=== PATIENT | female | born 1960 | race Caucasian/White ===

== ENCOUNTER 2018-04-03 08:53 | Outpatient (RCR) | payer OTHER ==
[~2018-04-03 08:53] MED LIST: GLIMEPIRIDE2 MG PO; GLUCOPHAGE1000 MG PO; PRAVASTATIN
== END 2018-04-26 ==
LOC: OT 08:53
PROVIDERS: ATTEND Specialist
DX: S52.501D Unspecified fracture of the lower end of right radius, subsequent encounter for closed fracture with routine healing (principal); M25.531 Pain in right wrist; M25.631 Stiffness of right wrist, not elsewhere classified; R53.1 Weakness

== ENCOUNTER 2018-05-04 15:12 | Emergency (ER) | payer OTHER ==
[~2018-05-04] VITALS: Ht 165.1 cm; Wt 65.8 kg
[2018-05-04] MEDS ORDERED: NPH, HUMAN INSULIN ISOPHANE 100 UNIT/1 ML 3ML VIAL SQ STA (15:29)
[2018-05-04] MEDS ORDERED: CLONIDINE HCL 0.1 MG TAB PO ONE (15:30)
[2018-05-04] MEDS ORDERED: INSULIN REGULAR, HUMAN 100 UNIT/1 ML 3ML VIAL IV ONE (17:15)
== END 2018-05-04 18:33 | disposition home or self-care (01) ==
LOC: FSED 15:12
DX: R07.89 Other chest pain (principal)
CPT/HCPCS: 70450; 70460; 80053; 81003; 85025; 85610; 93005; 99284

== ENCOUNTER 2018-05-06 12:39 | Observation (INO) | payer OTHER ==
[~2018-05-06] VITALS: Ht 165.1 cm; Wt 65.8 kg
[2018-05-06] MEDS ORDERED: SODIUM CHLORIDE 0.9% 1000ML 1,000 ML IV STA ×2 (12:41→14:19)
[2018-05-06] MEDS ORDERED: ASPIRIN 81 MG CHEW TAB PO ONE (12:45)
[2018-05-06 13:09] LABS: BASOPHILS # (AUTO) 0.1 (0.0-0.1); BASOPHILS % 0.8 % (0.0-1.0); EOSINOPHILS # (AUTO) 0.1 (0.0-0.4); EOSINOPHILS % 0.6 % (0.0-6.0); HEMATOCRIT 39.8 % (34.2-44.1); HEMOGLOBIN 13.9 g/dL (12.0-16.0); LYMPHOCYTES # (AUTO) 1.9 (1.0-3.2); LYMPHOCYTES % 23.8 % (18.0-39.1); MEAN CORPUSCULAR HEMOGLOBIN 30.5 pg (28-32); MEAN CORPUSCULAR HGB CONC 34.9 g/dL (31-35); MEAN CORPUSCULAR VOLUME 87.3 fL (81-99); MONOCYTES # (AUTO) 0.5 (0.2-0.8); MONOCYTES % 5.8 % (4.4-11.3); NEUTROPHILS # (AUTO) 5.3 (2.1-6.9); NEUTROPHILS % 68.5 % (38.7-80.0); PLATELET COUNT 343 x10e3/uL (140-360); RED BLOOD COUNT 4.56 x10e6/uL (3.6-5.1); RED CELL DISTRIBUTION WIDTH 11.9 % (11.7-14.4)
[2018-05-06 13:22] LABS: INR 1.08; PARTIAL THROMBOPLASTIN TIME 25.2 seconds (23.8-35.5); PROTHROMBIN TIME 13.2 seconds (11.9-14.5)
[2018-05-06 13:31] LABS: ALANINE AMINOTRANSFERASE 18 IU/L (0-55); ALBUMIN 3.9 g/dL (3.5-5.0); ALBUMIN/GLOBULIN RATIO 1.3 (0.8-2.0); ALKALINE PHOSPHATASE 84 IU/L (40-150); ANION GAP 18.3 mmol/L (8-16); BLOOD UREA NITROGEN 17 mg/dL (7-26); BUN/CREATININE RATIO 20 (6-25); CALCIUM 9.7 mg/dL (8.4-10.2); CARBON DIOXIDE 21 mmol/L (22-29); CHLORIDE 99 mmol/L (98-107); CREATINE KINASE 22 IU/L (29-168); CREATININE, SERUM 0.83 mg/dL (0.57-1.11); EST GLOMERULAR FILTRATION RATE > 60 ML/MIN (60-); POTASSIUM 4.3 mmol/L (3.5-5.1); SODIUM 134 mmol/L (136-145)
[2018-05-06 13:35] LABS: GLUCOSE 410 mg/dL (74-118)
--- NOTE | 2018-05-06 13:50 | Diagnostic Imaging Report ---
History:Left sided weakness Comparison studies:None Technique: Axial images were obtained from the skull base to the vertex. Coronal and sagittal images reconstructed from the axial data. Intravenous contrast: None Findings: Scalp/skull: No abnormalities. Extra-axial spaces: No masses. No fluid collections. Brain sulci: Mildly prominent. Ventricles: Mild compensatory dilatation. No hydrocephalus. Parenchyma: Few small hypodensities in the supratentorial white matter are small vessel ischemic changes. No masses, hemorrhage, acute or chronic cortical vascular insults. Sellar/suprasellar region: No abnormalities. Craniocervical junction: Patent foramen magnum. No Chiari one malformation. Incidental findings: Atherosclerotic calcifications in the carotid siphons . Impression: No acute abnormalities. Chronic findings: 1. Mild generalized volume loss. 2. Mild supratentorial white matter small vessel ischemic changes. Signed by: DR Zohaib Fernandes M.D. on 05/06/2018 1:47 PM
[2018-05-06] MEDS ORDERED: ASPIRIN 325 MG TAB PO ONE (14:00)
[2018-05-06 14:09] LABS: CLARITY,URINE HAZY (CLEAR); COLOR,URINE YELLOW (YELLOW); KETONES,URINE 2+ (NEGATIVE); LEUKOCYTE ESTERASE ,URINE NEGATIVE (NEGATIVE); NITRITE,URINE NEGATIVE (NEGATIVE); PROTEIN,URINE DIPSTICK NEGATIVE (NEGATIVE)
[2018-05-06 14:10] LABS: BILIRUBIN,URINE NEGATIVE (NEGATIVE); URINE UROBILINOGEN 0.2 mg/dL (0.2 - 1)
[2018-05-06 14:11] LABS: BACTERIA,URINE FEW /HPF; EPITHELIAL CELLS,URINE FEW /LPF; RBC,URINE 0-5 /HPF (0-5); WBC,URINE (MAN) 0-5 /HPF (0-5)
[2018-05-06] MEDS ORDERED: INSULIN LISPRO 100 UNIT/1 ML 3ML VIAL SQ STA (14:19)
[2018-05-06] MEDS ORDERED: ONDANSETRON HCL INJ 2 MG/ML VIAL IV PRN (14:45)
[2018-05-06] MEDS ORDERED: DEXTROSE 50% SYRINGE 50 ML IV PRN (16:00)
--- OUTSIDE RECORDS SUMMARY | 2018-05-06 16:03 | XMS REPORT | Continuity of Care Document ---
Author Author [facility] Organization [facility] Address [address] [place] [address] Phone Unavailable Care Team Providers Care Etl Manager Name Role Phone GERARDO ROSE MD PCP Insurance Providers Guarantor Yamileth Greer Address [address] [place] [address] Payer [facility] Policy Number [id number] Subscriber's Name Yamileth Greer Relationship 18 Self / Same As Patient Group Number [id number] Group Name [facility] Effective Date 17 Advance Directives Directive Response Recorded Date/Time Does the patient have an advance directive? No 04/03/18 8:52am If yes, is advance directive on file with [facility]? No 06/05/13 4:12pm If not on file with [facility] will patient provide a copy? No 06/05/13 4:12pm Do you have a Directive to Physician? No 05/04/18 4:15pm Do you have a Medical Power of Medical Director Of Hospice? No 05/04/18 4:15pm Do you have an out of hospital Do Not Resuscitate Order? No 05/04/18 4:15pm Do you have any special needs we should be aware of? No 05/04/18 4:15pm Do you have a support person here with you today? No 05/04/18 4:15pm Did patient receive Notice of Privacy Practices? Yes 05/04/18 4:15pm Did patient receive patient rights and responsibilities? Yes 05/04/18 4:15pm Problems No problem information available. Medications Current Home Medications Medication Dose Units Route Directions Days Qty Instructions Start Date Glimepiride 2 Mg Tablet 2 Mg Oral Twice A Day Metformin Hcl (Glucophage) 1,000 Mg Tablet 1,000 Mg Oral Twice A Day Pravastatin Social History Smoking Status Start Date Stop Date Never Smoker Hospital Discharge Instructions No hospital discharge instruction information available. Plan of Care Discharge Date 05/04/18 6:33pm Disposition HOME, SELF-CARE Condition at Discharge Stable Instructions/Education Provided Diabetes and Diet Foot Care for Diabetics Hypertension Weakness (Generalized) Forms Provided Work/School Excuse Prescriptions See Medication Section Referrals GERARDO ROSE MD Order Date: Call for an appointment Address: [address] [place] [address] BENITO COATS M.D. Order Date: Call for an appointment Address: [id number] [place] [address] Dr Rahman [address] [place] [id number] Additional Instructions/Education YOU NEED TO SEE YOUR PRIMARY CARE DOCTOR ON A REGULAR BASIS FOR EVALUATIONS AND TREATMENT FOR YOUR HIGH BLOOD PRESSURE AND YOUR DIABETIES. NOT TREATING YOUR HEALTH PROBLEMS COULD LEAD TO YOUR HEALTH DETORIATING, OR EVEN . TAKE ALL MEDICATION DIRECTED BY A DOCTOR. ESTABLISH YOURSELF WITH A NEUROLOGIST. ONE IS LISTED BELOW OR YOU MAY CHOOSE YOUR OWN. CALL AND MAKE AN APPOINTMENT NEXT WEEK. YOU HAVE BEEN GIVEN DISCHARGE TEACHING INSTRUCTIONS FOR TEACHING AND FURTHER EDUCATION. Functional Status No functional status information available. Allergies, Adverse Reactions, Alerts No known allergies. Immunizations No immunization information available. Vital Signs Acute Vital Signs Vital Response Date/Time Height 5 ft 5 in 05/04/2018 3:15pm Weight 145 lb 05/04/2018 3:15pm Body Mass Index 24.1 kg/m^2 05/04/2018 3:15pm Results No relevant diagnostic test, laboratory data and/or discharge summary information available. Procedures No procedure information available. Encounters Encounter Location Arrival/Admit Date Discharge/Depart Date Attending Provider Departed Emergency Room [facility] 05/04/18 3:12pm 6:33pm FLORENCE CARRENO MD Discharged Recurring [facility] 04/03/18 8:53am 04/26/18 11:59pm MARY GALAVIZ MD
--- OUTSIDE RECORDS SUMMARY | 2018-05-06 16:03 | XMS REPORT ---
Author Author [facility] Address Unknown Phone Unavailable Care Team Providers Care Student Development Dean Name Role Phone BRANDON PLEITEZ Unavailable Unavailable Problems This patient has no known problems. Allergies, Adverse Reactions, Alerts This patient has no known allergies or adverse reactions. Medications This patient has no known medications. Results Test Description Test Time Test Comments Text Results Atomic Results Result Comments CT BRAIN WO 2018-05-06 13:45:00 [place] [id number] [place] [id number] Patient Name: YAMILETH SOLIS MR #: [id number] : 1960 Age/Sex: 58/F Req #: [id number] Adm Physician: Ordered by: BRANDON PLEITEZ MD Report #: [id number] Location: ER Room/Bed: Procedure: [id number] CT/CT BRAIN WO Exam Date: 05/06/18 Exam Time: 1251 REPORT STATUS: Signed History:Left sided weakness Comparison studies:None Technique: Axial images were obtained from the skull base to the vertex. Coronal and sagittal images reconstructed from the axial data. Intravenous contrast: None Findings: Scalp/skull: No abnormalities. Extra-axial spaces: No masses. No fluid collections. Brain sulci: Mildly prominent. Ventricles: Mild compensatory dilatation. No hydrocephalus. Parenchyma: Few small hypodensities in the supratentorial white matter are small vessel ischemic changes. No masses, hemorrhage, acute or chronic cortical vascular insults. Sellar/suprasellar region: No abnormalities. Craniocervical junction: Patent foramen magnum. No Chiari one malformation. Incidental findings: Atherosclerotic calcifications in the carotid siphons . Impression: No acute abnormalities. Chronic findings: 1. Mild generalized volume loss. 2. Mild supratentorial white matter small vessel ischemic changes. Signed by: DR Zohaib Fernandes M.D. on 05/06/2018 1:47 PM Dictated By: ZOHAIB LIZ MD [id number] COPY TO: BRANDON PLEITEZ MD
[2018-05-06 16:32] VITALS: BP 199/101
[2018-05-06 17:00] VITALS: BP_SYST 199; BP_DIAS 101; BP_DIAS 102
[2018-05-06] MEDS: SODIUM CHLORIDE 0.9% 1000ML 1,000 ML IV SCH (17:16)
[2018-05-06] MEDS: INSULIN REGULAR, HUMAN 100 UNIT/1 ML 3ML VIAL SQ SCH ×2 (17:17→21:10)
[2018-05-06] MEDS ORDERED: NIFEDIPINE CR 30 MG TAB PO ONE (17:30)
[2018-05-06 20:00] VITALS: BP 169/106
[2018-05-06 20:05] VITALS: BP 169/106
[2018-05-06 21:38] LABS: CREATINE KINASE MB 1.2 ng/mL (0-5.0)
[2018-05-07] VITALS (7 sets, daily range): BP systolic 120–137; BP diastolic 79–87
[2018-05-07] MEDS: SODIUM CHLORIDE 0.9% 1000ML 1,000 ML IV SCH (04:51)
[2018-05-07 06:28] LABS: BASOPHILS # (AUTO) 0.1 (0.0-0.1); BASOPHILS % 0.9 % (0.0-1.0); EOSINOPHILS # (AUTO) 0.2 (0.0-0.4); EOSINOPHILS % 2.6 % (0.0-6.0); HEMATOCRIT 36.5 % (34.2-44.1); HEMOGLOBIN 12.7 g/dL (12.0-16.0); LYMPHOCYTES # (AUTO) 2.5 (1.0-3.2); LYMPHOCYTES % 36.2 % (18.0-39.1); MEAN CORPUSCULAR HEMOGLOBIN 30.6 pg (28-32); MEAN CORPUSCULAR HGB CONC 34.8 g/dL (31-35); MONOCYTES # (AUTO) 0.6 (0.2-0.8); MONOCYTES % 8.8 % (4.4-11.3); NEUTROPHILS # (AUTO) 3.5 (2.1-6.9); NEUTROPHILS % 50.9 % (38.7-80.0); PLATELET COUNT 301 x10e3/uL (140-360); RED BLOOD COUNT 4.15 x10e6/uL (3.6-5.1); RED CELL DISTRIBUTION WIDTH 12.1 % (11.7-14.4)
[2018-05-07 06:59] LABS: CREATINE KINASE 21 IU/L (29-168)
[2018-05-07 07:35] LABS: ANION GAP 12.1 mmol/L (8-16); BLOOD UREA NITROGEN 10 mg/dL (7-26); BUN/CREATININE RATIO 16 (6-25); CALCIUM 8.9 mg/dL (8.4-10.2); CARBON DIOXIDE 23 mmol/L (22-29); CHLORIDE 104 mmol/L (98-107); CHOL/HDL RATIO 8.6 (3.0-3.6); CHOLESTEROL 259 MD/DL (0-199); CREATININE, SERUM 0.62 mg/dL (0.57-1.11); EST GLOMERULAR FILTRATION RATE > 60 ML/MIN (60-); GLUCOSE 265 mg/dL (74-118); HDL CHOLESTEROL 30 MG/DL (40-60); LDL CHOLESTEROL 203 MG/DL (60-130); POTASSIUM 4.1 mmol/L (3.5-5.1); SODIUM 135 mmol/L (136-145); TRIGLYCERIDES 130 MG/DL (0-149)
[2018-05-07] MEDS: INSULIN REGULAR, HUMAN 100 UNIT/1 ML 3ML VIAL SQ SCH ×2 (08:34→12:32)
[2018-05-07] MEDS ORDERED: ASPIRIN 81 MG ENTERIC COATED PO SCH (09:00)
[2018-05-07] MEDS ORDERED: INSULIN DETEMIR 100 UNIT/ML PEN SQ NR (09:15)
--- NOTE | 2018-05-07 09:38 | History and Physical ---
CHIEF COMPLAINT: Left-sided weakness, slurred speech and severe high blood sugar of 400. HISTORY: Patient is a 58-year-old female who has diabetes for over 20 years. Decided that she wanted to treat it on her own by taking supplement and not treating her blood sugar. The patient came to the outpatient emergency room with left-sided weakness and staggering on walking with some slurred speech, and subsequently was treated with medication and was sent home. The patient went home with persistent symptoms. She came back to the hospital with difficulty walking, weakness more so to the left side with facial droop. It appears that she has weakness to the left upper extremity. The patient's symptoms improved once she was in the emergency room and received IV fluid rehydration. The patient is otherwise stable at this time. PAST MEDICAL HISTORY: Hypertension, diabetes, not treated, and hyperlipidemia. SURGICAL HISTORY: Noncontributory. SOCIAL HISTORY: Patient does not smoke or use alcohol. No recreational drugs. ALLERGIES: NO KNOWN ALLERGIES. HOME MEDICATIONS: Previously metformin and glimepiride, but not any at this time. PHYSICAL EXAMINATION VITAL SIGNS: Temperature is 98, blood pressure 129/83. When she came into the hospital, her blood pressure was 190/91, pulse rate 91, respirations 18. GENERAL: The patient is not in acute distress. She is awake. HEENT: Normocephalic, atraumatic and anicteric. NECK: Supple grossly. PULMONARY: Clear. CARDIOVASCULAR: Regular rate and rhythm. ABDOMEN: Soft and unremarkable. EXTREMITIES: No cyanosis or edema. NEUROLOGIC: No gross focal deficit. LABORATORY: Sodium is 135, potassium 4.1, chloride was 99, bicarb 21, BUN 17, creatinine 0.9, glucose was 410. WBC was 7.7, hemoglobin 13.9, hematocrit 40, and platelets is 343,000. Urinalysis with 3+ glucose and 2+ ketones. CT scan of brain is negative. IMPRESSION 1. Uncontrolled diabetes with blood sugar in the 400s. 2. Hypertensive urgency. 3. Left-sided weakness, facial droop and left hand weakness. PLAN: Insulin sliding scale. Levemir. Consultation with Dr. Agustín Obrien. MRI of the brain without contrast. IV fluid rehydration. Continue to monitor the patient closely. Give the patient nifedipine XL 30 mg once a day. Job#: [id number] MAYELA
--- NOTE | 2018-05-07 13:26 | Diagnostic Imaging Report ---
History: Slurred speech. Left-sided weakness. Tingling. Comparison studies: CT head 05/06/2018 Technique: Sagittal T2; axial DWI, FLAIR, MPGR, T1, Coronal FLAIR. Intravenous contrast: None Findings: Scalp: Normal in signal . No masses . Bone marrow: Normal in signal intensity. Extra-axial: No masses, no fluid collections. Brain sulci: Appropriate for age. Ventricles: Normal in size . No hydrocephalus . Parenchyma: Restricted diffusion is seen at the right central digna measuring approximately 1.5 cm, without significant mass effect. White matter T2/FLAIR hyperintensities of the periventricular, subependymal and corpus callosum white matter, some of them with orientation perpendicular to the ependymal lining. No masses or hemorrhage,. Suprasellar region: No abnormalities. Craniocervical junction: No abnormalities. Patent foramen magnum. No Chiari one malformation. Vessels: Normal flow-voids in the arteries and sinuses. IMPRESSION: 1. Focus of restricted diffusion is seen at the right central digna without mass effect, this could be related to an acute infarct or demyelinating lesion. Recommend further evaluation with MRI of the brain with contrast. 2. Nonspecific white matter T2/flair hyperintensities, this could be seen in demyelinating conditions such as multiple sclerosis with superimposed white matter chronic microvascular changes. Signed by: DR Zohaib Fernandes M.D. on 05/07/2018 1:22 PM
[2018-05-07 15:28] LABS: CREATINE KINASE 24 IU/L (29-168)
--- NOTE | 2018-05-07 15:52 | Consultation ---
DATE OF CONSULTATION: May 07, 2018 ENDOCRINE CONSULTATION HISTORY OF PRESENT ILLNESS: This is a patient of Dr. Lee. Thank you very much for referring this patient. This is a 58-year-old white female who is referred to me for evaluation of uncontrolled diabetes mellitus. Patient tells me that she has diabetes for almost 20 years. She was on oral hypoglycemics about 2 years back. At that time, she lost a significant amount of weight and since that time she has not taken any medications for diabetes except some herbs. Patient came to the hospital this time with a history of left-sided weakness, slurred speech and high blood sugar. During the hospital stay, the speech has improved but she still has some weakness on the left upper extremity. Patient also has history of hypertension. At the time of admission, her blood sugar was around 400 and the blood pressure was significantly elevated. Patient does have family history of diabetes. In fact, I am the oral communication instructor of her sister, also, who has rather late onset autoimmune diabetes mellitus. PHYSICAL EXAMINATION: GENERAL: Today the patient is alert, awake, very apprehensive. VITAL SIGNS: Her heart rate is around 78. Blood pressure is 160/90 mmHg. HEENT: Examination essentially unremarkable. Thyroid is palpable. Clinically she is near euthyroid. CHEST: Bilateral vesicular breathing. No rales heard. CARDIAC: Both 1st and 2nd heart sounds. There is no 3rd or 4th heart sound. Ejection sound grade 2/6. At the time of admission, as already mentioned, her blood sugar was around 400 but her anion gap was within the range. She had 2+ ketone in the urine. CLINICAL IMPRESSION: 1. Diabetes mellitus type 2, uncontrolled with complications. 2. Left-sided weakness, rule out cerebrovascular accident, rule out demyelinating disease. 3. Hypertension. 4. Hyperlipidemia. The plan at this time is to put her on the insulin combination on the Levemir and the Humalog, monitor her blood sugars closely, and patient needs extensive diabetic and dietary education. Thanks for referring this patient. I will be following this patient with you. Job#: [id number] EV MTDAshely
[2018-05-07] MEDS: FAMOTIDINE 20 MG TAB PO SCH (16:30)
[2018-05-07] MEDS ORDERED: ENOXAPARIN SOD INJ 40 MG/0.4 ML SYR SC SCH (17:00)
[2018-05-07] MEDS: INSULIN LISPRO 100 UNIT/1 ML 3ML VIAL SQ SCH ×3 (17:29→21:10)
--- NOTE | 2018-05-07 17:51 | Consultation ---
DATE OF CONSULTATION: May 07, 2018 NEUROLOGY CONSULTATION HISTORY OF PRESENT ILLNESS: Ms. Greer is a 58-year-old right hand dominant woman with past medical history significant for hypertension, hyperlipidemia, and diabetes mellitus type 2, all uncontrolled, admitted to [facility] on May 06, 2018, with symptoms concerning for a stroke. For 2 weeks prior to admission, the patient did not "feel well." When asked for a further description of her symptoms, the patient endorses fatigue, dysarthria, left facial droop, and left hemiparesis. Ms. Greer does not report a visual field cut or other disturbance, aphasia, numbness, or tingling. She does report difficulty walking which she further describes as dragging her left leg and drifting towards the left. The patient does not report dizziness or confusion. The above described symptoms began sometime within the past 2 weeks. Ms. Greer cannot say whether or not the symptoms began suddenly or came on gradually. Two days prior to admission, the patient was seen at an urgent care center with the above symptoms. At the urgent care center, the patient was noted to have an elevated blood pressure as well as an elevated serum glucose. Ms. Greer was given medications to treat both her high blood pressure and high serum glucose. She underwent a CT of the brain without contrast which was reportedly normal. Once her blood pressure and serum glucose were brought under better control, the patient was discharged from the urgent care center with instructions to follow up with her physician or physicians as an outpatient. The following day, the patient continued to not "feel well." Several friends and family members told her she was acting strangely. On the evening prior to admission, the patient contacted via telephone an on-call physician and told him of her symptoms. Ms. Greer was strongly advised to proceed to the emergency center at [facility] for further evaluation. Ms. Greer did this on May 06, 2018. Upon arrival in the emergency center, the patient was afebrile with a blood pressure of 190/91 mmHg and a pulse of 99 beats per minute. The patient's neurological examination was documented as follows: Alert. Oriented times 3. Mood/affect normal. Speech normal. Mild left-sided facial weakness. Finger-nose test mildly abnormal on the left. Abnormal gait. She has weakness of the left face (mild), left arm (mild) and left leg (mild). Reflexes normal. While in the emergency center, a CT of the brain without contrast was performed and did not show evidence of recent large territorial ischemia, hemorrhage, mass, or mass effect. Ms. Greer was admitted to [facility] for further evaluation and treatment of her symptoms. Ms. Greer has not experienced similar symptoms previously. She does not report a headache associated with the above symptoms. REVIEW OF SYSTEMS: Dysarthria, left facial weakness, left arm and leg weakness, impairment of balance and gait. Otherwise the 12 point review of systems is negative. PAST MEDICAL HISTORY: Hypertension (uncontrolled), hyperlipidemia (uncontrolled), diabetes mellitus type 2 (uncontrolled), and possible chronic kidney disease. PAST SURGICAL HISTORY: Tonsillectomy, colonoscopy. PAST HOSPITALIZATIONS: Surgeries/procedures as listed, childbirth times 4. FAMILY HISTORY: The patient's paternal grandfather is , cause unknown. The patient's maternal grandmother is from complications of diabetes mellitus. Ms. Greer's maternal grandfather is from complications of alcoholism. Her maternal grandmother 1 year ago from old age. The patient's father is . He had hyperlipidemia, diabetes mellitus, coronary artery disease, and stroke. Ms. Greer's mother is alive and has high blood pressure. The patient has 2 siblings, a brother and sister. Both siblings are living. Her brother has hypertension and borderline diabetes mellitus. Her sister has diabetes mellitus. Ms. Greer has 4 children, 3 girls and 1 boy. All are alive and healthy. SOCIAL HISTORY: Ms. Greer is . She graduated high school and attended some college. She currently works for a [employer]. The patient does not report current or prior tobacco or recreational drug use. She reports occasional alcohol consumption. HOME MEDICATIONS: None. ALLERGIES: NO KNOWN DRUG ALLERGIES. NO KNOWN FOOD ALLERGIES. NO KNOWN ALLERGIES TO LATEX. NO KNOWN ALLERGIES TO IODINE OR OTHER CONTRAST MATERIALS. PHYSICAL EXAMINATION: VITAL SIGNS: Height 65 inches, weight 145 pounds, BMI 24.1 kg per meter squared. Blood pressure 137/83 mmHg, pulse 80 beats per minute, respiratory rate 18 breaths per minute, oxygen saturation 98% on room air. GENERAL: The patient is awake and alert, does not appear distressed. HEENT: Normocephalic, atraumatic. Pupils are equal, round, and reactive to light. Moist mucous membranes. NECK: Supple. No appreciable thyromegaly. No appreciable carotid bruits. CARDIOVASCULAR: S1, S2, regular rate and rhythm. Positive for moderate grade systolic ejection murmur. No rubs or gallops. RESPIRATORY: Clear to auscultation bilaterally. No wheezes, rhonchi, or rales. EXTREMITIES: The skin is warm and dry. No clubbing, cyanosis, or edema. The posterior tibial and dorsalis pedis pulses are 1+ and symmetric. SKIN: No rashes or lesions. NEUROLOGIC Memory/Attention: The patient is awake and alert, oriented to person, place, time, and situation. Cranial Nerves: Cranial nerve 1--Not tested. Cranial nerve 2, 3, 4, and 6--Pupils are equal and round, react briskly to light (from 4 mm to 2 mm), extraocular movements intact, no nystagmus. Cranial nerve 5--Sensation to light touch and pinprick is intact in the bilateral V1 through V3 distributions. Strength of the temporalis and masseter muscles is within normal limits. Cranial nerve 7--There is flattening of the left nasolabial fold with mild left central facial weakness. Cranial nerve 8--Hearing is intact to finger rub bilaterally. Cranial nerve 9, 10--The soft palate elevates equally and symmetrically. Cranial nerve 11--Normal strength of the bilateral sternocleidomastoid and trapezius muscles. Cranial nerve 12--The tongue protrudes midline and moves symmetrically from side to side. Strength: Bulk is normal. Strength is 5/5 in the bilateral deltoids, biceps, triceps, wrist flexors and extensors, finger flexors and extensors, intrinsic hand muscles, hip flexors, knee flexors and extensors, ankle dorsiflexion and plantarflexion, and intrinsic foot muscles. Tone is normal. DTRs: Deep tendon reflexes are 1+ and symmetric at the triceps biceps, brachial radialis, patellas, and Achilles. Plantar responses are flexor bilaterally. Sensation: Sensation is intact to light touch and pinprick in both arms and both legs. Dysesthesia to light touch and pinprick over the left foreleg. Cerebellar: Funzqf-ryut-ujlssx and heel-hartley movements are intact without dysmetria or other impairment. Gait: Deferred. Speech: Spontaneous speech is normal without appreciable dysarthria or aphasia. Repetition is intact. Involuntary Movements: None. Pronator Drift: Left arm. LABORATORY DATA: Sodium 135, potassium 4.1, chloride 104, carbon dioxide 23, anion gap 12.1, BUN 10, creatinine 0.62, estimated GFR greater than 60, BUN to creatinine ratio 16, glucose 265, calcium 8.9 from May 06, 2018. Total bilirubin 0.8, AST 14, ALT 18, alkaline phosphatase 84. Total protein 7.0, albumin 3.9, globulin 3.1, albumin to globulin ratio 1.3. Creatine kinase 2229, 2124. CK-MB 1.10, 1.20, 0.90, 0.90. Troponin I less than 0.001, 0.011, less than 0.001, less than 0.001. Hemoglobin A1c 14.9. Total cholesterol 259, triglycerides 130, LDL cholesterol 203, HDL cholesterol 30. TSH 0.991, free T4 1.11. CBC with differential and platelets reveals a white blood cell count of 6.85 with a normal differential. The hemoglobin and hematocrit are 12.7 and 36.5, respectively. The platelet count is 301. PT 13.2, INR 1.08, PTT 25.2. A urinalysis performed on May 06, 2018, reveals 3+ glucose and 2+ ketones. DIAGNOSTIC STUDIES: CT of the brain without contrast May 06, 2018: On my review, there is no evidence of recent large territorial ischemia, hemorrhage, mass, or mass effect. Echocardiogram of May 07, 2018: Ejection fraction 60% to 65%. Positive for pericardial effusion measuring 0.7 cm. Left ventricular hypertrophy. Mild mitral and tricuspid regurgitation. Bilateral carotid artery ultrasound with Doppler May 07, 2018: There is atherosclerosis without hemodynamically significant stenosis in the bilateral carotid bulbs and bifurcations. There is possible hemodynamically significant stenosis in the left external carotid artery. MRI of the brain without contrast May 07, 2018: On my review, the DWI sequence reveals acute ischemia in the right digna with ADC correlates. Mild diffuse cerebral atrophy. Scattered T2/FLAIR hyper-intensities compatible with mild to moderate chronic small vessel ischemic disease. ASSESSMENT AND PLAN: Ms. Greer is a 58-year-old right hand dominant woman with multiple vascular risk factors, all uncontrolled, who presented to [facility] on May 06, 2018, with a 2 week history of left-sided neurological deficits. The patient's neurological examination is significant for flattening of the left nasolabial fold with mild central left facial weakness, mild left hemiparesis, and impairments of gait and balance. Ms. Greer's laboratory data and other diagnostic studies have been reviewed and are documented above. Ms. Greer has experienced an acute right pontine stroke secondary to small vessel ischemic disease. She has undergone a nearly complete stroke evaluation as detailed above. Further recommendations are as follows: 1. Aspirin 325 mg by mouth daily for stroke prophylaxis. 2. The patient's blood pressure may be normalized. Her goal blood pressure is less than 140/90 mmHg. Her blood pressures are currently well controlled with Procardia XL 30 mg by mouth daily. Continue treatment with this medication. 3. The patient's goal total cholesterol is less than 200 with an LDL of less than 70. Ms. Greer's cholesterol is uncontrolled. The patient will be prescribed atorvastatin 80 mg by mouth at bedtime daily for hyperlipidemia. 4. The patient's goal hemoglobin A1c is less than 7.0. Ms. Greer's hemoglobin A1c is 14.9. Treatment of the patient's diabetes mellitus will be referred to the marketing regional consultant on her case, Dr. Obrien. 5. A physical therapy consultation was ordered and performed. The results from that consultation are pending. A speech consult will be ordered as well. 6. GI prophylaxis with Pepcid 20 mg by mouth twice daily before meals. DVT prophylaxis with Lovenox 40 mg subcutaneously daily. 7. Defer treatment of the remaining medical comorbidities to the primary and other services. Thank you for this consultation. I will continue to follow this patient while she remains in the hospital. Time spent: 50 minutes. Job#: [id number] EV TEAGAN
[2018-05-07] MEDS ORDERED: INSULIN DETEMIR 100 UNIT/ML PEN SQ SCH (21:00)
[2018-05-07] MEDS ORDERED: ATORVASTATIN 40 MG TAB PO SCH (21:00)
[2018-05-07] MEDS ORDERED: ATORVASTATIN 20 MG TAB PO SCH (21:00)
[2018-05-08] VITALS: BP 119/80
[2018-05-08 04:00] VITALS: BP 123/68
[2018-05-08] MEDS: FAMOTIDINE 20 MG TAB PO SCH (07:30)
[2018-05-08 07:35] VITALS: BP 123/68
[2018-05-08 08:00] VITALS: BP 140/84
[2018-05-08] MEDS: INSULIN LISPRO 100 UNIT/1 ML 3ML VIAL SQ SCH ×4 (08:24→12:43)
[2018-05-08] MEDS ORDERED: ASPIRIN 325 MG TAB PO SCH (09:00)
[2018-05-08] MEDS ORDERED: ASPIRIN 81 MG ENTERIC COATED PO SCH (09:00)
[2018-05-08] MEDS ORDERED: NIFEDIPINE CR 30 MG TAB PO SCH (09:00)
--- NOTE | 2018-05-08 09:32 | Discharge Summary ---
PCP: Dr. Fallon Banuelos TERMITE EXTERMINATOR: Dr. Agustín Obrien and Dr. Velia Lovett. FINAL DIAGNOSES 1. 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 2. Left-sided weakness, improving. 3. Uncontrolled diabetes with hemoglobin A1c of 14.9. SUMMARY: Patient is a 58-year-old female who came in with slurred speech, left-sided facial droop and left-sided weakness. MRI without contrast showed that the patient does have some brainstem area ischemic subacute to acute stroke. Blood pressure was very elevated. The patient is stable now. Blood pressure is better controlled. She is improving. She had very uncontrolled diabetes due to compliancy issue. She decided that she would stop all her diabetic medication and try a different route through supplement and exercise. Obviously, it did not work for the patient with glycohemoglobin A1c of 14.9. Patient was placed on insulin per Dr. Agustín Obrien on consult. The patient is stable. She will go home today with insulin per Dr. Obrien. She will continue with aspirin 325 mg daily and Lipitor 80 mg at bedtime. Her LDL is 203. The patient is stable. She will take nifedipine XL 30 mg once a day for blood pressure control. The patient is to follow up with Dr. Banuelos in approximately [address] Agustín Obrien for diabetes management. The patient is stable and expressed understanding. She will be discharged home after seeing Dr. Obrien today. Job#: [id number] MAYELA
[2018-05-08] MEDS ORDERED: NIFEDIPINE ER30 M1 PO (10:17)
[2018-05-08] MEDS ORDERED: LIPITOR20 MG PO (10:18)
[2018-05-08] MEDS ORDERED: ECOTRIN325 MG PO (10:19)
[2018-05-08 11:53] VITALS: BP 141/82
[2018-05-08] MEDS ORDERED: LANTUS 3ML100 UNITS/ SQ (13:58)
[2018-05-08] MEDS ORDERED: HUMALOG100 UNIT/1 SC (13:59)
== END 2018-05-08 16:42 | disposition home or self-care (01) ==
LOC: ER 12:39 → ERHOLD 16:00 → MED/SURG 16:05 → ACU 05-07 12:00 → MED/SURG 05-07 12:00
PROVIDERS: ADMIT Internal Medicine; ATTEND Internal Medicine
DX: I63.29 Cerebral infarction due to unspecified occlusion or stenosis of other precerebral arteries (principal); I16.0 Hypertensive urgency; E11.65 Type 2 diabetes mellitus with hyperglycemia; I10 Essential (primary) hypertension; Z91.14 Patient's other noncompliance with medication regimen; R29.810 Facial weakness; E78.5 Hyperlipidemia, unspecified; R47.1 Dysarthria and anarthria; G81.94 Hemiplegia, unspecified affecting left nondominant side
CPT/HCPCS: 36415 ×3; 70450; 70551; 80048; 80053; 80061; 81001; 82550 ×2; 82553 ×2; 82948 ×3; 83036; 84439; 84443; 84484 ×2; 85025 ×2; 85610; 85730; 92507; 92523; 93005; 93306; 93880; 96372; 97139; 99284; G0378 ×3; J1650; J7030 ×2